=== PATIENT | female | born 1970 | race Caucasian/White ===

== ENCOUNTER → 2017-06-08 | Outpatient (CLI) | payer MEDICAID | LOC: BMCIMAGING 07:15 | PROVIDERS: ATTEND Family Medicine | DX: N20.0 Calculus of kidney (principal) ==

== ENCOUNTER → 2017-07-02 | Outpatient (CLI) | payer MEDICAID | LOC: BMCIMAGING 11:13 | PROVIDERS: ATTEND Family Medicine | DX: Z13.820 Encounter for screening for osteoporosis (principal); M85.89 Other specified disorders of bone density and structure, multiple sites; E21.0 Primary hyperparathyroidism ==

== ENCOUNTER → 2017-07-30 | Outpatient (CLI) | payer MEDICAID | LOC: FIMAGING 10:01 | PROVIDERS: ATTEND Surgery | DX: E21.0 Primary hyperparathyroidism (principal) | CPT/HCPCS: 78070; A9500; A9516 ==

== ENCOUNTER → 2018-05-04 | Outpatient (CLI) | payer MEDICAID ==
[~2018-05-04] MED LIST: IOHEXOL 300 mgI/ML (OMNIPAQUE) 150 ML BTL IV ONE
== END ==
LOC: FIMAGING 07:59
PROVIDERS: ATTEND Surgery
DX: E04.1 Nontoxic single thyroid nodule (principal); E21.3 Hyperparathyroidism, unspecified; R42 Dizziness and giddiness
CPT/HCPCS: Q9967

== ENCOUNTER → 2018-05-11 | Outpatient (CLI) | payer MEDICAID | LOC: FIMAGING 12:56 | PROVIDERS: ATTEND Internal Medicine | DX: Z12.31 Encounter for screening mammogram for malignant neoplasm of breast (principal) ==

== ENCOUNTER → 2018-06-03 | Outpatient (CLI) | payer MEDICAID | LOC: FIMAGING 05-27 13:09 | PROVIDERS: ATTEND Internal Medicine | DX: R92.8 Other abnormal and inconclusive findings on diagnostic imaging of breast (principal) ==

== ENCOUNTER 2018-06-09 05:36 | Observation (INO) | payer MEDICAID ==
[2018-06-09] MEDS ORDERED: ceFAZolin 2 GM/DEXTROSE 100 ML IV ONE (05:52)
[2018-06-09] MEDS ORDERED: LR 1,000 ML IV ONE (05:55)
[2018-06-09] MEDS ORDERED: BUPIVACAINE/EPI 0.5% 30 ML SDV ONE (06:35)
[2018-06-09] MEDS ORDERED: BACITRACIN ZINC 0.5 OZ OINTTUBE TP ONE (06:35)
[2018-06-09] MEDS ORDERED: MIDAZOLAM 2 MG/2 ML VIAL IVP ONE (06:53)
[2018-06-09] MEDS ORDERED: HYDROCODONE/APAP 5/325 TAB PO PRN (06:54)
[2018-06-09] MEDS ORDERED: NALOXONE HCL 0.4 MG/ML INJ IVP PRN (06:54)
[2018-06-09] MEDS ORDERED: ALBUTEROL 3 ML DEYVIAL IH PRN (06:54)
[2018-06-09] MEDS ORDERED: HYDROmorphONE/DILAUDID 2 MG/ML INJ IVP PRN (06:54)
[2018-06-09] MEDS ORDERED: oxyCODONE IR 5 MG TAB PO PRN (06:54)
[2018-06-09] MEDS ORDERED: DEXAMETHASONE 4 MG/ML VIAL IVP PRN (06:54)
[2018-06-09] MEDS ORDERED: PROMETHAZINE HCL 25 MG/ML INJ IVP PRN (06:54)
[2018-06-09] MEDS ORDERED: ONDANSETRON 4 MG/2 ML VIAL IVP PRN (06:54)
--- NOTE | 2018-06-09 06:54 | PDANEPAE ---
ANE History of Present Illness here for parathyroidectomy ANE Past Medical History - Cardiovascular History Hx Hypertension: No Hx Arrhythmias: No Hx Chest Pain: No Hx Coronary Artery / Peripheral Vascular Disease: No Hx CHF / Valvular Disease: No Hx Palpitations: No - Pulmonary History Hx COPD: No Hx Asthma/Reactive Airway Disease: No Hx Recent Upper Respiratory Infection: No Hx Oxygen in Use at Home: No Hx Sleep Apnea: No Sleep Apnea Screening Result - Last Documented: Negative - Neurologic History Hx Cerebrovascular Accident: No Hx Seizures: No Hx Dementia: No - Endocrine History Hx Diabetes: No - Renal History Hx Renal Disorders: No - Liver History Hx Hepatic Disorders: No - Neurological & Psychiatric Hx Hx Neurological and Psychiatric Disorders: Yes Neurological / Psychiatric History Comment: DEPRESSION - Cancer History Hx Cancer: No - Congenital Disorder History Hx Congenital Disorders: No - GI History Hx Gastrointestinal Disorders: No - Other Health History Other Health History: OSTEOPENIA. HYPERPARATHYROIDISM. MISSING UPPER TEETH/ RETAINER - Chronic Pain History Chronic Pain: No - Surgical History Prior Surgeries: RT THUMB TENDON REPAIR. ANE Review of Systems Review of systems is: negative Review of Systems: - Exercise capacity Exercise capacity: >=4 METS METS (RN): 6 METS ANE Patient History - Allergies Allergies/Adverse Reactions: No Known Allergies Allergy (Verified 03/27/12 11:08) - Home Medications Home medications: home medication list seen and reviewed Home Medications: Citalopram DAILY 06/01/18 [Last Taken 06/09/18 05:45] - NPO status NPO Status: no food or drink >8 hours NPO Since - Liquids (Date): 06/08/18 NPO Since - Liquids (Time): 21:00 NPO Since - Solids (Date): 06/08/18 NPO Since - Solids (Time): 19:30 - Anes Hx Anes Hx: no prior problems - Smoking Hx Smoking Status: Former smoker ANE Labs/Vital Signs - Vital Signs Vital Signs: reviewed preoperatively; see RN documention for details Blood Pressure: 119/81 Heart Rate: 58 Respiratory Rate: 18 O2 Sat (%): 99 Height: 162.56 cm Weight: 49.895 kg ANE Physical Exam - Airway Neck exam: FROM Mallampati Score: Class 1 Mouth exam: normal dental/mouth exam - Pulmonary Pulmonary: no respiratory distress - Cardiovascular Cardiovascular: regular rate and rhythym - ASA Status ASA Status: I ANE Anesthesia Plan Anesthesia Plan: general endotracheal anesthesia
--- NOTE | 2018-06-09 06:56 | PDHPUP ---
History & Physical Update H&P update statement: This history and physical update is based on an assessment of the patient which was completed after admission or registration (within 24 hours), but prior to the surgery/procedure. H&P update: H&P reviewed & patient examined, no change in patient's condition since H&P completed
[2018-06-09] MEDS ORDERED: PROPOFOL/EMULSION 500 MG/50 ML BOTTLE IV ONE (07:00)
[2018-06-09] MEDS ORDERED: ONDANSETRON 4 MG/2 ML VIAL ONE (07:36)
[2018-06-09] MEDS ORDERED: DEXAMETHASONE 4 MG/ML VIAL ONE (07:36)
[2018-06-09] MEDS ORDERED: PROPOFOL 200 MG/20 ML VIAL ONE (07:40)
[2018-06-09] MEDS ORDERED: fentaNYL 100 MCG/2 ML INJ ONE ×2 (07:41→09:15)
[2018-06-09] MEDS ORDERED: PHENYLEPHRINE HCL 100 MCG/ML SYR ONE (08:00)
[2018-06-09] MEDS ORDERED: ePHEDrine SULFATE 25 MG/5 ML SYR ONE (08:33)
--- NOTE | 2018-06-09 09:01 | POSTOPPROG ---
Post Op Note Date of Operation: 06/09/18 Surgeon: Caitlin Rudd Front Counter Clerk: sudhir gayle PA-C Anesthesiologist: sachin Anesthesia: GET(General Endotracheal) Pre-op Diagnosis: parathyroid adenoma Post-op Diagnosis: same, right lower pole Indication: 48yo F with nephrolithiasis, hypercalc found to have parathy adenoma Procedure: R inf pole parathyroidectomy Findings: preop PTH 107.4 --> 10 min post 26.0 Inf/Abcess present in the surg proc area at time of surgery?: No EBL: Minimal Complications: none immediately postoperatively Bowel Protocol: N/A Clean Closure Performed: N/A Specimen(s): R inferior pole parathyroid
[2018-06-09] MEDS: fentaNYL 100 MCG/2 ML INJ IVP PRN ×2 (09:17→09:58)
[2018-06-09] MEDS ORDERED: diphenhydrAMINE 25 MG CAP PO PRN (09:22)
[2018-06-09] MEDS ORDERED: ACETAMINOPHEN 325 MG TAB PO PRN (09:22)
[2018-06-09] MEDS ORDERED: ONDANSETRON DISINTEGRATING 4 MG TAB PO PRN (09:22)
[2018-06-09] MEDS ORDERED: IBUPROFEN 600 MG TAB PO PRN (09:22)
--- NOTE | 2018-06-09 10:00 | GOP ---
[f rep st] OPERATIVE REPORT DATE OF OPERATION: 06/09/2018 SURGEON: Caitlin Rudd MD HAT BODY INSPECTOR: Valeria Sims MD ANESTHESIA: Dr. Pablito Puckett/general. PREOPERATIVE DIAGNOSIS: Parathyroid adenoma. POSTOPERATIVE DIAGNOSIS: Parathyroid adenoma. PROCEDURE PERFORMED: Right inferior parathyroidectomy. FINDINGS: Two glands on the right inferior pole, the one more lateral was not hypercellular and the one that was behind the trachea was more firm. SPECIMENS: PTH initial at 6:24 107, at 8:18 26 and at 8:28 16.5, and parathyroid glands for patholog y. ESTIMATED BLOOD LOSS: 5 cc. INDICATIONS: The patient is a 48-year-old woman who has had hyperparathyroidism. She also had assoc iated stones and malaise and depressive symptoms. Initially performed a sestamibi scan and ultrasoun d which did not find an adenoma. We then performed a CT scan of her neck and an enlarged gland was f ound in the right inferior pole behind the trachea. DESCRIPTION OF PROCEDURE: The patient was brought into the operating room, placed supine on the tabl e, and general anesthesia was administered. Her neck was extended, a bump placed behind her shoulder s, and she was placed in the modified beach chair position. Her neck was prepped and draped in the u sual sterile fashion. I infiltrated the area with 0.5% Marcaine prior to making incisions. I made a n incision approximately 2 fingerbreadths above the sternal notch. I dissected down through the skin , subcutaneous tissues and divided the platysma. I then created platysma flaps. I continued my diss ection until I encountered the strap muscles; I divided these vertically and spread them. I rolled h er thyroid grand laterally; I had to ligate the inferior thyroid artery in order to roll this. There was a bulging lundberg-yellow tissue in the right inferior pole; this was carefully dissected free and the small vessel leading to it was clipped. This was sent to Pathology. It was not very large in s ize, and so I continued my dissection rolling the thyroid more to the left side and found another are a of tissue behind the trachea. I also identified the recurrent laryngeal nerve and protected this. I carefully dissected away the nodule and again clipped the bleeding artery. I used a combination o f electrocautery and bipolar. This was submitted to Pathology and her parathyroid was sent 10 and 20 minutes after the tissue was sent to Pathology. The pathology was unable to be declared as an adeno ma; however, her PTH dropped from 107.4 to 16.5. Hemostasis was meticulously established. The strap muscles were reapproximated with 3-0 Vicryl. Platysma approximated with 3-0 Vicryl and the skin mandy sed with 4-0 Monocryl. Mastisol, Steri-Strips, and sterile dressing were applied. She was awakened in the operating room, extubated, and transferred to PACU in stable condition. /[id number]/MODL
[2018-06-09] MEDS: HYDROCODONE/APAP 5/325 TAB PO PRN ×3 (10:41→16:04)
--- NOTE | 2018-06-09 16:41 | ASMTCMCOM ---
CM Note CM Note Notes: Pt is s/p a planned R inferior parathyroidectomy. Anticipate she will d/c home independent with her when medically cleared. CM will continue to follow for any change in needs. D/C plan: anticiipate home independent Date Signed: 06/09/2018 04:41 PM Electronically Signed By:KIRILL Shah
[2018-06-09] MEDS ORDERED: POLYETHYLENE GLYCOL 3350 17 GM PKT PO PRN (18:28)
[2018-06-10] MEDS: HYDROCODONE/APAP 5/325 TAB PO PRN (00:12)
--- NOTE | 2018-06-10 08:47 | SOAPPROG ---
SOAP Progress Note Assessment/Plan: Assessment: POD # 1 s/p parathyroidectomy x 2 Ca 8.8 and PTH 2 Can dc home Plan: 06/10/18 08:46 POD # 1 s/p parathyroidectomy Ca 8.8 and PTH 27 Tolerating diet Can DC home F/U with labs in 1 week S: O: Sitting in bed No increased work of breathing RRR Incision CDI 06/10/18 08:58 Objective: Vital Signs Temp Pulse Resp BP Pulse Ox 36.8 C 78 16 91/55 L 94 06/10/18 03:16 06/10/18 03:16 06/10/18 03:16 06/10/18 03:16 06/10/18 03:16 06/09/18 06/10/18 06/11/18 05:59 05:59 05:59 Intake Total 2350 Output Total 10 Balance 2340 ICD10 Worksheet Patient Problems: Problems Problem Status Onset Hyperparathyroidism Acute - ICD10 Problem Qualifiers (1) Hyperparathyroidism
[2018-06-10] MEDS ORDERED: CITALOPRAM 20 MG TAB PO SCH (09:00)
[2018-06-10 09:08] VITALS: BP 97/66
--- NOTE | 2018-06-10 09:38 | ASDISCHSUM ---
Discharge Information Plan Status:Home with No Needs Medically Cleared to Leave: Discharge Date: D/C Disposition:Home, Routine, Self-Care ADT D/C Disposition: Projected Discharge Date: Transportation at D/C:Family Discharge Delay Reason: Follow-Up Date: Discharge Slot: Final Diagnosis: Placement Information Patient Contact Information Contact Name:AYESHA Relationship: Address:[address] [place] [address] Work Phone: City:[place] Alternate Phone: State/Zip Code:[place] [address] Email: Financial Information Financial Class:Medicaid Primary Plan Desc:[employer] [place] [place] Primary Plan Number:[id number] Secondary Plan Desc: Secondary Plan Number: Assessment Information LACE LACE Length of stay for Answers: Less than 1 day current admission Acuity / Level of Answers: No Care: Did the patient have an inpatient admission? # of Emergency department Answers: 0 visits in the last 6 months Social determinants Answers: Mental health diagnosis (anxiety, depression, pers onality disorders, etc.) Score: 3 Date Signed: 06/10/2018 09:37 AM Electronically Signed By:Funmi Marcus RN [facility] Progress Note CM Note CM Note Notes: Pt is s/p a planned R inferior parathyroidectomy. Anticipate she will d/c home independent with her when medically cleared. CM will continue to follow for any change in needs. D/C plan: anticiipate home independent Date Signed: 06/09/2018 04:41 PM Electronically Signed By:KIRILL Shah Intervention Information
--- NOTE | 2018-06-10 10:34 | POSTANESTH ---
Post Anesthetic Evaluation Cardiovascular Status: Normal, Stable Respiratory Status: Normal, Stable Level of Consciousness/Mental Status: Can Participate in Eval Pain Control: Adequate, Prn Tx Ordered Nausea/Vomiting Control: Adequate, Prn Tx Ordered Complications Possibly Related to Anesthesia: None Noted
--- NOTE | 2018-06-14 12:49 | GDS ---
[f rep st] DISCHARGE SUMMARY ADMITTING DIAGNOSIS: Hyperparathyroidism. SECONDARY DIAGNOSES: Depression, hypercalcemia, nephrolithiasis, osteopenia. REASON FOR HOSPITALIZATION: 48-year-old woman who has a history of nephrolithiasis and upon workup w as found to have hyperparathyroidism. She was admitted at this time for surgical intervention, pain control and observation. HOSPITAL COURSE: She was taken to the operating room by Dr. Caitlin Rudd on 06/09/2018 for parathyroi dectomy. Intraoperative lab findings: Preoperative PTH 107.4 and 10 minutes post parathyroidectomy PTH 26. She was admitted overnight for pain control and observation. On postoperative day #1, her p ain is well controlled with oral pain medication. She is tolerating regular diet. No difficulties b reathing or swallowing. Her calcium was within normal limits. Her PTH was 27. She was ready for di [id number] home. DISCHARGE CONDITION: Discharged home in stable condition. Pain well controlled. Tolerating regular diet. Ambulating independently. DISCHARGE MEDICATIONS: Home with new prescription for [place]. Instructed to resume home medications. Please see EMR for further. DISCHARGE INSTRUCTIONS AND FOLLOWUP: Parathyroid postop. She may take Tums once or twice per day. Instructed to call with any worsening numbness or tingling around lips or fingers. Call with difficu lty swallowing, change in voice or other concerns. She will follow up in the clinic in 1 week. She will get labs obtained prior to her office visit. Call with any worsening symptoms, questions or con cerns. /[id number]/MODL
== END 2018-06-10 10:36 | disposition home or self-care (01) ==
LOC: FSGY 05:36 → F3E 09:22 → F1N 10:23
PROVIDERS: ADMIT Physician Assistant Surgical; ATTEND Surgery
PROC: 0GTN0ZZ Resection of Right Inferior Parathyroid Gland, Open Approach (ICD-10-PCS; principal; 2018-06-09 07:15)
DX: E21.3 Hyperparathyroidism, unspecified (principal); F32.9 Major depressive disorder, single episode, unspecified; N20.0 Calculus of kidney; M85.80 Other specified disorders of bone density and structure, unspecified site
CPT/HCPCS: J0690; J1100; J2250; J2370; J2405; J2704; J3010